=== PATIENT | female | born 2000 | race Caucasian/White ===

== ENCOUNTER 2020-09-11 02:40 | Emergency (ER) | payer OTHER ==
[~2020-09-11] VITALS: Ht 162.6 cm; Wt 75.0 kg
[2020-09-11 02:44] VITALS: BP 154/112; TEMP 98
[2020-09-11] MEDS ORDERED: PERCOCET 325 MG1 TA2 PO (03:33)
[2020-09-11] MEDS ORDERED: MOTRIN 400400 MG/TAB PO (03:33)
[2020-09-11 03:52] VITALS: PULSE 102
== END 2020-09-11 03:52 | disposition home or self-care (01) ==
LOC: COL.ER 02:40
DX: H60.92 Unspecified otitis externa, left ear (principal); Z88.0 Allergy status to penicillin
CPT/HCPCS: J1885